=== PATIENT | female | born 2000 | race African-American/Black ===

== ENCOUNTER 2019-03-15 15:31 | Day surgery (SDC) | payer OTHER ==
[2019-03-15 15:57] VITALS: BMI 30.9
[2019-03-15] MEDS ORDERED: Ondansetron ODT 8 MG TAB SL SCH (16:45)
[2019-03-15] MEDS ORDERED: Morphine 4 MG/ML VIAL IM SCH (16:45)
[2019-03-15 17:04] LABS: Bacteria/HPF 4+ HPF (None Seen); Bilirubin Negative (Negative); Blood, Urine 1+ (Negative); Clarity Clear (Clear); Glucose, Urine (Dipstick) Normal (Negative); Leukocyte 500 Leu/uL (Negative); Nitrite Negative (Negative); Protein, Urine (Dipstick) 10 mg/dL (Neg-Trace); RBC/HPF 0-3 HPF (0-3); Squamous Epithelial 0-3 HPF (0-3); Urobilinogen Normal mg/dL (Less than 2); WBC/HPF 21-50 HPF (0-3)
[2019-03-15] MEDS ORDERED: cefTRIAXone\\ROCEPHIN 1 GM VIAL IM SCH (17:15)
[2019-03-16] MEDS ORDERED: hydrALAZINE 20 MG/ML VIAL SLOW IVP PRN (07:56)
--- NOTE | 2019-03-16 08:40 | PRG ---
DATE OF SERVICE: 03/15/2019 CHIEF COMPLAINT: Abdominal contractions. HISTORY OF PRESENT ILLNESS: The patient is a 19-year-old primip, with intrauterine at 38 weeks and 5 days, presenting to Labor and Delivery with abdominal pains that she has been feeling irregularly, cannot give frequency or intensity. The patient was followed in the clinic. She denies any fever, fall, headache, chest pain, shortness of breath, nausea, vomiting, diarrhea, constipation, hip problems, knee problems, or muscle weakness. She reports some crampiness in her back and her pelvis. She also reports that she has been evaluated for blood pressures in the past. She denies vaginal bleeding or leakage of fluid, urinary urgency or frequency. The patient reports having had sex earlier. PAST MEDICAL HISTORY: Negative. PAST SURGICAL HISTORY: Negative. ALLERGIES: NO KNOWN DRUG ALLERGIES. MEDICATIONS: vitamins. OB LABS: Unavailable at the time of dictation. REVIEW OF SYSTEMS: Per HPI. PHYSICAL EXAMINATION: VITAL SIGNS: Blood pressure 136/92, heart rate of 93, respiratory rate 16, and temperature 98.6. She further in the first hour had a few mild range blood pressures that were discovered to be likely erroneous as the patient was sitting on her arm and stretching it out during the blood pressure administration. Subsequent blood pressures over a 4-hour period were in the normal range; 120s to 130s over 60s to 80s, pulse in the 90s. GENERAL: She appears to be in no acute distress. She is alert, oriented, cooperative, and pleasant to interact with. HEAD: Normocephalic, atraumatic. LUNGS: Clear to auscultation bilaterally. HEART: Has regular rate and rhythm. ABDOMEN: Gravid and soft. EXTREMITIES: Nontender, nonedematous. : Her cervical exam was 1, thick, and high. heart tracing shows the fetus with a baseline in the 130s with moderate long-term variability, positive 15 x 15 accelerations. Tocometer showing irritability, but no regular contraction pattern. LABORATORY DATA: Urine has trace protein, negative ketones, 1+ blood, 500 leukocyte esterase, 21 to 50 white blood cells, and 4+ bacteria. ASSESSMENT AND PLAN: The patient is a 19-year-old female with an intrauterine at 38 weeks and 6 days, present with a urinary tract infection and irritability, but no evidence of labor. Initial blood pressures were elevated, but at rest and proper technique, blood pressure remained normal. The patient has been discharged to home. With urinary tract infection, she was given Rocephin IM here in Labor and Delivery for treatment. She has an appointment early next week. We have encouraged that she keep for blood pressure followup and routine care with clinic. Her fetus is at a category 1 tracing, reactive NST. Job ID: [id number]
[2019-03-16] MEDS ORDERED: FLU VACC QS2019-20(6MOS UP)/PF 60 MCG/0.5 ML SYRINGE IM ONE (16:45)
== END 2019-03-15 22:58 | disposition home or self-care (01) ==
LOC: L&D/OP 15:31
PROVIDERS: ATTEND Family Medicine
DX: O23.43 Unspecified infection of urinary tract in pregnancy, third trimester (principal); Z3A.38 38 weeks gestation of pregnancy
CPT/HCPCS: 81001; J0696; J2270

== ENCOUNTER 2019-03-18 16:26 | Inpatient (IN) | payer OTHER ==
[~2019-03-18 16:26] MED LIST: Bupivacaine 0.25% HCL 30 ML VIAL ONE
[2019-03-18 17:20] VITALS: BMI 30.9
--- NOTE | 2019-03-18 17:36 | PDOC.FPROB ---
FMR OB H&P: HPI - History of Present Illness Chief Complaint: ctx Indentification: 19 y/o @ 39.1 WGA by LMP/32.2 wk sono History of Present Illness: presents with ctx that started at noon. They have been increasing in frequency and severity. She was here for a labor check a few days ago and was 1cm. +FM, denies LOF, vaginal bleeding, vaginal d/c. Primary Care Physician: Dr. Holbrook - [facility] FMR OB H&P: Current - Care : 1 Para: 0 Gestational age: 39w1d Due date: 03/24/19 - OB Labs Blood type: O RH: positive Antibody Screen: negative HIV: negative RPR: negative HepBsAg: negative Rubella: immune Urine drug screen: positive (THC) Gonorrhea: negative Chlamydia: negative 1 hour gtt: 2h GTT normal GBS: unknown FMR OB H&P: History - Past Medical History PMH: None - OB History OB History: - Surgical History Sx History: None - Social History Social History: Denies tobacco, EtOH, or drug use, but did have +TCH on UDS this - Family History Family History: Denies FMR OB H&P: Medications - Current Home Medications: Medication Instructions Recorded Confirmed Type Iron Fum,Ps/Folic Acid/Vitc/B3 1 tab PO DAILY 03/15/19 03/18/19 History [Integra F Capsule] Allergies/Adverse Reactions: Allergies Allergy/AdvReac Type Severity Reaction Status Date / Time No Known Allergies Allergy Verified 03/18/19 17:20 FMR OB H&P: ROS - Review of Systems General: denies: fever/chills, weight/appetite/sleep changes Eyes: denies: vision changes, double vision ENT: denies: nasal congestion, sore throat Cardiovascular: denies: chest pain, edema Respiratory: denies: cough, shortness of breath Gastrointestinal: denies: nausea, vomiting Genitourinary (Female): reports: contractions, vaginal pressure. denies: dysuria, hematuria, vaginal discharge Musculoskeletal: denies: pain, swelling Neurologic: denies: numbness, weakness Integumentary: denies: itching, rash FMR OB H&P: Vital Signs - Maternal Vital signs: Vital Signs - First Documented Temp Pulse Resp BP 98.6 F 86 18 120/86 03/18/19 16:59 03/18/19 16:59 03/18/19 16:59 03/18/19 16:59 - Heart Tones Baseline: 135 Variability: moderate Acceleration: present Deceleration: absent Category: category 1 [place] contractions every: 3 min FMR OB H&P: Physical Exam - Physical Exam General: NAD, awake, alert and oriented HEENT: EOMI, MMM, grossly normal vision, grossly normal hearing Neck: supple, no LAD Heart: RRR, normal S1/S2, no murmurs/rubs/gallops, pulses present, no edema General: no respiratory distress, good air movement Abdomen: soft, gravid, non-tender (palpable ctx) Neurological: no clonus, no focal deficit Skin: good tugor, capillary refill <2 seconds Psychiatric: intact recent and remote memory, good judgement and insight - Pelvic Exam SVE: /+1 Membranes: intact Presentation: cephalic FMR OB H&P: A/P - Problem List (1) Term Current Visit: Yes Status: Acute Code(s): Z34.90 - ENCNTR FOR SUPRVSN OF NORMAL , UNSP, UNSP TRIMESTER Comment: SVE /+1 -LR @ 125 -NPO -Will start pushing soon (2) Anemia affecting Current Visit: Yes Status: Acute Code(s): O99.019 - ANEMIA COMPLICATING , UNSPECIFIED TRIMESTER Comment: Pt on iron -Hgb: 11.6 (3) Late care Current Visit: Yes Status: Acute Code(s): O09.30 - SUPRVSN OF PREG W INSUFFICIENT ANTENAT CARE, UNSP TRIMESTER Comment: Records reviewed. -GBS negative Disposition: Admit to L&D Discussion: Date/Time: 03/18/19 8966 This H&P was discussed with Dr. Sánchez who agrees with the above documentation and plan. Signature: Eneida Cazares MD, PGY-3 Addendum - Attending - Attending Attestation Date/Time: 03/19/19 0032 I personally evaluated the patient and discussed the management with Dr. Cazares on 03/18 I agree with the History, Examination, Assessment and Plan documented above with any addition or exceptions noted below - 19 yo @39.1 weeks presented c/o ctx since noon increasing in intensity. ?LOF around noon. (+)FM. Initial SVE 4/90/+1 Category 1 FHTs [place]-ctx q3-4 min A/P: 1) IUP@39.1 weeks in early labor- will admit to L&D and monitor progress. 2) Pre-eclampsia without severe features- elevated BPs and had urine Pr/Cr at clinic = 0.5. Continue to monitor closely.
[2019-03-18] MEDS ORDERED: Ibuprofen 800 MG TAB PO PRN (17:49)
[2019-03-18] MEDS ORDERED: Lidocaine 1% (PF) 30 ML VIAL SC PRN (17:49)
[2019-03-18] MEDS ORDERED: NS / Oxytocin 40 units/1000ml 1,000 ML IV PRN (17:49)
[2019-03-18] MEDS ORDERED: Promethazine HCl 25 MG/ML VIAL IM PRN (17:49)
[2019-03-18] MEDS ORDERED: hydrALAZINE 20 MG/ML VIAL SLOW IVP PRN (17:49)
[2019-03-18] MEDS ORDERED: Ondansetron PF 4 MG/2 ML Vial IVP PRN (17:49)
[2019-03-18] MEDS ORDERED: Lactated Ringer's 1,000 ML IV SCH (18:00)
[2019-03-18] MEDS ORDERED: Butorphanol Tartrate 1 MG/ML VIAL SLOW IVP PRN (18:21)
[2019-03-18 19:09] LABS: Hemoglobin 11.6 g/dL (12.0-16.0); Mean Corpuscular HGB CONC 32.7 g/dL (32.0-36.0); Mean Corpuscular Hemoglobin 28.7 pg (25.0-35.0); Mean Corpuscular Volume 87.9 fL (78.0-98.0); Mean Platelet Volume 8.1 fL (7.4-10.4); Platelet Count 271 thou/uL (130-400); Red Blood Cell (RBC) Count 4.05 mill/uL (4.00-5.20); White Blood Cell (WBC) Count 11.1 thou/uL (4.8-10.8)
[2019-03-18] MEDS ORDERED: Fentanyl 4 mcg/Bup 0.1% Cadd 100 ML ONE (19:31)
[2019-03-18 19:33] LABS: ALT (SGPT) 9 U/L (8-55); AST (SGOT) 13 U/L (5-34); Albumin 3.2 g/dL (3.5-5.0); Alkaline Phosphatase 252 U/L (40-100); Anion Gap 14 mmol/L (10-20); BUN (Urea Nitrogen) Less than 4 mg/dL (7.0-18.7); Bilirubin, Total 0.3 mg/dL (0.2-1.2); Calc. Creatinine Clearance 165 mL/min (70-130); Calcium 8.6 mg/dL (7.8-10.44); Carbon Dioxide 25 mmol/L (22-29); Chloride 102 mmol/L (98-107); Estimated GFR-MDRD Greater than 90; Globulin 3.7 g/dL (2.4-3.5); Glucose 82 mg/dL (70-105); Potassium 3.1 mmol/L (3.5-5.1); Protein, Total 6.9 g/dL (6.0-8.3); Sodium 138 mmol/L (136-145)
[2019-03-18 19:36] LABS: Amphetamine Not Detected (NotDetected); Barbiturates Screen Not Detected (NotDetected); Benzodiazepine Screen Not Detected (NotDetected); Cocaine Metabolite Screen Not Detected (NotDetected); Medtox Control Line Valid? VALID (VALID); Medtox Reader # READER 4; Methadone Not Detected (NotDetected); Methamphetamine Not Detected (NotDetected); Opiate Screen Not Detected (NotDetected); Oxycodone Screen Not Detected (NotDetected); Phencyclidine (PCP) Not Detected (NotDetected); THC/Cannabinoid Screen Detected (NotDetected); Tricyclic Screen Not Detected (NotDetected)
[2019-03-18 19:50] LABS: Syphilis Antibody Nonreactive (Nonreactive); Syphilis Antibody Index 0.08 S/CO (<1.00 Non-Reactive)
[2019-03-18 19:51] LABS: HBSAg Index 0.86 S/CO (0-0.99); Hep B Surf Ag Non-Reactive S/CO (NonReactive)
--- NOTE | 2019-03-18 22:11 | PDOC.LDPN ---
Labor & Delivery Progress Note - Subjective Subjective: comfortable, vaginal pressure - Objective Vital signs reviewed and normal: yes Abnormal vital signs: elevated bp with 2 severe range during epidural back to back General: NAD, resting Uterine fundus: non tender SVE: posterior Dilation: 6 Effacement: 100% Station: 1+ FHT: category 1 [place] contractions every: 1-2 minutes - Assessment (1) Anemia affecting Code(s): O99.019 - ANEMIA COMPLICATING , UNSPECIFIED TRIMESTER Current Visit: Yes Status: Acute Comment: Pt on iron -Hgb: 11.6 (2) Late care Code(s): O09.30 - SUPRVSN OF PREG W INSUFFICIENT ANTENAT CARE, UNSP TRIMESTER Current Visit: Yes Status: Acute Comment: Records reviewed. -GBS status unknown but have called [facility] and they will fax results. Penicillin pending results (3) Term Code(s): Z34.90 - ENCNTR FOR SUPRVSN OF NORMAL , UNSP, UNSP TRIMESTER Current Visit: Yes Status: Acute Comment: SVE 6/+1 -LR @ 125 -NPO -SVE q2h Plan: continue plan of care
--- NOTE | 2019-03-18 23:12 | PDOC.LDPN ---
Labor & Delivery Progress Note - Subjective Subjective: vaginal pressure - Objective Vital signs reviewed and normal: yes General: breathing through contractions Uterine fundus: palpable contractions Dilation: 10 Effacement: 100% Station: -1 FHT: category 1 [place] contractions every: 1 min - Assessment (1) Anemia affecting Code(s): O99.019 - ANEMIA COMPLICATING , UNSPECIFIED TRIMESTER Current Visit: Yes Status: Acute Comment: Pt on iron -Hgb: 11.6 (2) Late care Code(s): O09.30 - SUPRVSN OF PREG W INSUFFICIENT ANTENAT CARE, UNSP TRIMESTER Current Visit: Yes Status: Acute Comment: Records reviewed. -GBS negative (3) Term Code(s): Z34.90 - ENCNTR FOR SUPRVSN OF NORMAL , UNSP, UNSP TRIMESTER Current Visit: Yes Status: Acute Comment: LISE /+1 -LR @ 125 -NPO -Will start pushing soon Plan: continue plan of care
--- NOTE | 2019-03-19 00:17 | PDOC.OPDEL ---
OB Operative/Delivery Note Delivery Dr/Surgeon: Dr. Holbrook, Dr. Alba Johnson, Dr. Sánchez Pre-Delivery Diagnosis: active labor, other (Pre-Eclampsia) Procedure/Post Delivery Dx: spontaneous vaginal delivery Weeks gestation: 39 Anesthesia: epidural - Findings A Sex: male - 1 min: 9 - 5 min: 9 - Additional Findings/Plan Placenta delivered: spontaneous (Richardson) Repaired Obstetrical Laceration: none Estimated blood loss: 50 mL Compilations/Other Findings: Delivering Physician: Dr. Alba Johnson, Dr. Holbrook Attending: Dr. Sánchez Procedure: Spontaneous Vaginal Delivery Anesthesia: Epidural EBL: 50 ml Pre-op Diagnosis: 1. Term intrauterine in labor 2. Hx of THC use 3. Hx of elevated BP without diagnosis of HTN Post-op Diagnosis: 1. Term intrauterine , delivered 2. Hx of THC use 3. Hx of elevated BP without diagnosis of HTN Indications: A 19 y/o female presents in for contractions. Delivery Note: This is 19 yo F @ 39.2 wks who delivered a viable M at 03/19 @ 0002. Following an uneventful antepartum course, a vigorous M was delivered over an intact perineum in the occipitoanterior position. Anterior Shoulder and then remainder of the body delivered. No nuchal cord. The head was held down and mouth and nares were bulb suctioned. Cord clamped after delayed cord clamping and cut and cord blood collected. Placenta delivered intact in the [place] presentation with a 3 vessel cord noted. Fundal massage was performed and the fundus was firm. The cervix and vagina were inspected and found to be free of lacerations. Infant went to nursery in good condition for routine care. Apgars were 9/9 at 1 & 5 minutes, respectively. Patient tolerated delivery well and went to after routine recovery/ care. Post delivery plan: routine recovery Addendum - Attending - Attending Attestation Date/Time: 03/19/19 0044 I was present, assisted and supervised the of a viable male infant to this 19 yo @39.2 weeks. Apgars 9/9. No nuchal cord. Shoulders and body delivered easily. Placenta delivered spontaneously and intact, 3V cord. No epi or laceration. QBL=50 mL. Residents: Alba Johnson/Sheron
[2019-03-19] MEDS ORDERED: Benzocaine-Menthol 82.5 ML CAN TOP PRN (01:48)
[2019-03-19] MEDS ORDERED: Ondansetron PF 4 MG/2 ML Vial IVP PRN (01:48)
[2019-03-19] MEDS ORDERED: Preparation H Ointment 28 GM TUBE PR PRN (01:48)
[2019-03-19] MEDS ORDERED: Milk Of Magnesia 30 ML UDCUP PO PRN (01:48)
[2019-03-19] MEDS ORDERED: Bisacodyl 10 MG SUPP PR PRN (01:48)
[2019-03-19] MEDS ORDERED: diphenhydrAMINE 25 MG CAP PO PRN (01:48)
[2019-03-19] MEDS ORDERED: Lanolin Ointment 7 GM TUBE TOP PRN (01:48)
[2019-03-19] MEDS ORDERED: NS / Oxytocin 40 units/1000ml 1,000 ML IV SCH (01:48)
[2019-03-19] MEDS ORDERED: hydrALAZINE 20 MG/ML VIAL SLOW IVP PRN (01:48)
[2019-03-19] MEDS: Ibuprofen 800 MG TAB PO SCH ×3 (04:44→21:22)
--- NOTE | 2019-03-19 07:35 | PDOC.OBPPN ---
FMR OB PN: Subj - Interval History Hospital Day: 2 Day: 1 Chief Complaint: Indentification: > Interval History: NA FMR OB PN: Obj - Maternal Vital signs: BP: [135/73] HR: [85] RR: [] Tmax: [98.3] Pox: [99]% on [Room] Wt: [] - Urine output I&O: 03/18/19 03/19/19 03/20/19 06:59 06:59 06:59 Output Total 115 Balance -115 - Lochia Lochia: Scant vaginal bleeding - unremarkable. - Pain Management Pain scale: 0 Intervention: epidural FMR OB PN: Exam - Physical Exam General: NAD HEENT: normocephalic and atraumatic, PERRLA, MMM, conjunctiva clear, no scleral icterus, grossly normal vision, grossly normal hearing, normal nasal mucosa, oropharynx clear, good dention Neck: supple, FROM Chest: non-tender to palpation, no lesions Breast: symmetric, no nipple discharge Heart: RRR, normal S1/S2, no murmurs/rubs/gallops, pulses present, no edema General: CTAB, no respiratory distress, good air movement, no rales/rhonchi, no wheezing, no retractions Musculoskeletal: pulses present, FROM in all four extremities, no misalignment/ asymmetry, no atrophy Neurological: sensation to pain,touch and proprioception grossly normal Skin: no rash, no jaundice Lymphatic: no unusual bruising or bleeding, no purpura, no petechia Psychiatric: intact recent and remote memory, normal mood and affect FMR OB PN: Data - Labs Lab results: Laboratory Results - last 24 hr 03/18/19 03/18/19 03/18/19 19:01 19:01 19:01 WBC RBC Hgb Hct MCV MCH MCHC RDW Plt Count MPV Sodium Potassium Chloride Carbon Dioxide Anion Gap BUN Creatinine Estimated GFR (MDRD) Glucose Calcium Total Bilirubin AST ALT Alkaline Phosphatase Serum Total Protein Albumin Globulin Albumin/Globulin Ratio Urine Opiates Screen Ur Oxycodone Screen Urine Methadone Screen Ur Propoxyphene Screen Ur Barbiturates Screen Ur Tricyclics Screen Ur Phencyclidine Scrn Ur Amphetamines Screen U Methamphetamines Scrn U Benzodiazepines Scrn U Cocaine Metab Screen U Cannabinoids Screen Drug Screen Comment Syphilis IgG/IgM Ab Nonreactive Hep Bs Antigen Non-Reactive Blood Type O POSITIVE Antibody Screen NEGATIVE 03/18/19 03/18/19 03/18/19 19:01 19:01 19:17 WBC 11.1 H RBC 4.05 Hgb 11.6 L Hct 35.6 L MCV 87.9 MCH 28.7 MCHC 32.7 RDW 15.0 H Plt Count 271 MPV 8.1 Sodium 138 Potassium 3.1 L Chloride 102 Carbon Dioxide 25 Anion Gap 14 BUN Less than 4 L Creatinine 0.68 Estimated GFR (MDRD) Greater than 90 Glucose 82 Calcium 8.6 Total Bilirubin 0.3 AST 13 ALT 9 Alkaline Phosphatase 252 H Serum Total Protein 6.9 Albumin 3.2 L Globulin 3.7 H Albumin/Globulin Ratio 0.9 L Urine Opiates Screen Not Detected Ur Oxycodone Screen Not Detected Urine Methadone Screen Not Detected Ur Propoxyphene Screen Not Detected Ur Barbiturates Screen Not Detected Ur Tricyclics Screen Not Detected Ur Phencyclidine Scrn Not Detected Ur Amphetamines Screen Not Detected U Methamphetamines Scrn Not Detected U Benzodiazepines Scrn Not Detected U Cocaine Metab Screen Not Detected U Cannabinoids Screen Detected H Drug Screen Comment Syphilis IgG/IgM Ab Hep Bs Antigen Blood Type Antibody Screen 03/18/19 20:02 WBC RBC Hgb Hct MCV MCH MCHC RDW Plt Count MPV Sodium Potassium Chloride Carbon Dioxide Anion Gap BUN Creatinine Estimated GFR (MDRD) Glucose Calcium Total Bilirubin AST ALT Alkaline Phosphatase Serum Total Protein Albumin Globulin Albumin/Globulin Ratio Urine Opiates Screen Ur Oxycodone Screen Urine Methadone Screen Ur Propoxyphene Screen Ur Barbiturates Screen Ur Tricyclics Screen Ur Phencyclidine Scrn Ur Amphetamines Screen U Methamphetamines Scrn U Benzodiazepines Scrn U Cocaine Metab Screen U Cannabinoids Screen Drug Screen Comment Syphilis IgG/IgM Ab Hep Bs Antigen Blood Type O POSITIVE Antibody Screen FMR OB PN: A/P - Problem List (1) care following vaginal delivery Current Visit: Yes Status: Acute Code(s): Z39.2 - ENCOUNTER FOR ROUTINE FOLLOW-UP (2) Substance abuse affecting , antepartum Current Visit: Yes Status: Acute Code(s): O99.320 - DRUG USE COMPLICATING , UNSPECIFIED TRIMESTER (3) Term Current Visit: Yes Status: Acute Code(s): Z34.90 - ENCNTR FOR SUPRVSN OF NORMAL , UNSP, UNSP TRIMESTER Comment: SVE /+1 -LR @ 125 -NPO -Will start pushing soon Disposition: 19 y/o female admitted initially for contractions, subsequently delivered at 0002 on 03/19/19. 1. Term , resolved -Late to care -Presented with contractions at 39.1W -SVE: /+1, progressed to 01/24/+1 within 5 hours -Unremarkable delivery - TAGAM with APGARS of 9/9 -QBL: 65 ml 2. Care following Vaginal Delivery -Minimal bleeding -BP: 135/73 - continue to monitor closely -Pain adequately controlled -No difficulty voiding - unable to pass stool yet -Intends to formula feed -Discuss desire for circumcision at subsequent evaluation 3. Substance Abuse Affecting , Antepartum -Patient's UDS was positive for THC on multiple occasions - UDS: Pending -Patient's room smelled strongly of MJ during initial evaluation -Consider Case Management / CPS consult following discussion with Attending Physician 4. Hypokalemia -K: 3.1 -K-Dur 40 mg PO BID -Continue to monitor clinically Dispo: Patient recovering well on Floor. Continue to monitor vitals and laboratory values. Discuss desire for circumcision at subsequent evaluation. Await subsequent UDS - consider Case Management / CPS consult. Discussion: Date/Time: 03/19/19 6184 This H&P was discussed with [] and [] who agree with the above documentation and plan. Addendum - Attending - Attending Attestation Date/Time: 03/19/19 1200 I personally evaluated the patient and discussed the management with Dr. Garcia and team. I agree with the History, Examination, Assessment and Plan documented above with any addition or exceptions noted below. Patient with no complaints of pain, headache, RUQ/BRYAN pain, scotoma. Feels good overall. Anticipate 48-72h pp with circ on day of d/c for per parental request.
[2019-03-19] MEDS ORDERED: Adacel (T-DAP) 0.5 ML SYRINGE IM ONE (09:00)
[2019-03-19] MEDS: Ferrous Sulfate 325 MG TAB PO SCH ×2 (09:37→17:40)
[2019-03-19] MEDS: Potassium Chloride 20 MEQ TAB PO SCH ×2 (09:37→17:40)
[2019-03-19] MEDS: Docusate Calcium (SURFAK) 240 MG CAP PO SCH ×2 (09:37→21:22)
[2019-03-19] MEDS: Prenatal Vitamin 1 TAB PO SCH (09:37)
[2019-03-19] MEDS ORDERED: Sodium Chloride 0.9% 10 ML ONE (10:58)
--- NOTE | 2019-03-20 01:40 | PDOC.PP ---
Post Progress Note Subjective: Ms. Redmond is doing well, ambulating down the hallway. She reports minimal lochia, denies pain. She has no concerns. Undecided on contraception. PO intake tolerated: yes Flatus: yes Ambulation: yes Vital Signs (12 hours) Temp Pulse Resp BP Pulse Ox 03/19/19 23:15 98.2 F 85 16 139/72 03/19/19 20:11 98.2 F 87 16 144/76 H 100 03/19/19 17:27 97.8 F 65 16 136/78 98 Weight Weight 79.379 kg - Physical Examination General: NAD Cardiovascular: RRR Respiratory: clear to auscultation bilaterally, non-labored breathing Abdominal: + bowel sounds, no distention, appropriately TTP Neurological: no gross focal deficits Psychiatric: A&Ox3, normal affect Result Diagrams: 03/18/19 19:01 03/18/19 19:01 Additional Labs: Post Labs Blood Type O POSITIVE 03/18/19 20:02 Hep Bs Antigen Non-Reactive S/CO (NonReactive) 03/18/19 19:01 (1) care following vaginal delivery Code(s): Z39.2 - ENCOUNTER FOR ROUTINE FOLLOW-UP Status: Acute (2) Anemia affecting Code(s): O99.019 - ANEMIA COMPLICATING , UNSPECIFIED TRIMESTER Status : Acute Comment: Pt on iron -Hgb: 11.6 (3) Late care Code(s): O09.30 - SUPRVSN OF PREG W INSUFFICIENT ANTENAT CARE, UNSP TRIMESTER Status: Acute Comment: Records reviewed. -GBS negative (4) Substance abuse affecting , antepartum Code(s): O99.320 - DRUG USE COMPLICATING , UNSPECIFIED TRIMESTER Status: Acute (5) Preeclampsia Code(s): O14.90 - UNSPECIFIED PRE-ECLAMPSIA, UNSPECIFIED TRIMESTER Status: Acute - Assessment/Plan 19 y/o female admitted initially for contractions, subsequently delivered at 0002 on 03/19/19. Care following Vaginal Delivery -Pain adequately controlled -Bottle feeding -Undecided on contraception Pre-E without severe features -urine Pr/Cr at clinic of 0.5 - patient asymptomatic - has had 2 isolated BPs >140 systolic, continue to monitor BP Substance Abuse Affecting , Antepartum -Patient's UDS was positive for THC on multiple occasions, UDS on admission negative. - UDS negative, pending MDS Anemia - Hgb 11.7 prior to delivery with minimal blood loss Dispo: Patient recovering well on Floor. Plan for continued observation and discharge tomorrow. Addendum - Attending - Attending Attestation Date/Time: 03/20/19 2322 I personally evaluated the patient and discussed the management with the team. I agree with the History, Examination, Assessment and Plan documented above with any addition or exceptions noted below.
[2019-03-20] MEDS: Ferrous Sulfate 325 MG TAB PO SCH ×2 (12:47→17:33)
[2019-03-20] MEDS: Docusate Calcium (SURFAK) 240 MG CAP PO SCH ×2 (12:47→21:39)
[2019-03-20] MEDS: Ibuprofen 800 MG TAB PO SCH ×3 (12:47→21:39)
[2019-03-20] MEDS: Prenatal Vitamin 1 TAB PO SCH (12:48)
[2019-03-20] MEDS: Amoxicillin/Potassium Clav 500 MG TAB PO SCH (21:39)
--- NOTE | 2019-03-21 01:54 | PDOC.PP ---
Post Progress Note Subjective: Patient feeling well. She has no concerns or complaints. She feels ready to go home. PO intake tolerated: yes Flatus: yes Ambulation: yes Vital Signs (12 hours) Temp Pulse Resp BP Pulse Ox 03/21/19 00:20 98.2 F 87 18 120/75 03/20/19 20:00 98.5 F 83 20 133/72 99 Weight Weight 79.379 kg - Physical Examination General: NAD Cardiovascular: RRR Respiratory: clear to auscultation bilaterally, non-labored breathing Abdominal: + bowel sounds, no distention (no TTP) Neurological: no gross focal deficits Psychiatric: A&Ox3, normal affect Result Diagrams: 03/18/19 19:01 03/18/19 19:01 Additional Labs: Post Labs Blood Type O POSITIVE 03/18/19 20:02 Hep Bs Antigen Non-Reactive S/CO (NonReactive) 03/18/19 19:01 (1) care following vaginal delivery Code(s): Z39.2 - ENCOUNTER FOR ROUTINE FOLLOW-UP Status: Acute (2) Anemia affecting Code(s): O99.019 - ANEMIA COMPLICATING , UNSPECIFIED TRIMESTER Status : Acute Comment: Pt on iron -Hgb: 11.6 (3) Late care Code(s): O09.30 - SUPRVSN OF PREG W INSUFFICIENT ANTENAT CARE, UNSP TRIMESTER Status: Acute Comment: Records reviewed. -GBS negative (4) Substance abuse affecting , antepartum Code(s): O99.320 - DRUG USE COMPLICATING , UNSPECIFIED TRIMESTER Status: Acute (5) Preeclampsia Code(s): O14.90 - UNSPECIFIED PRE-ECLAMPSIA, UNSPECIFIED TRIMESTER Status: Acute - Assessment/Plan 19 y/o female admitted initially for contractions, subsequently delivered at 0002 on 03/19/19. Care following Vaginal Delivery -Denies pain -Bottle feeding -Undecided on contraception Pre-E without severe features - urine Pr/Cr at clinic of 0.5 - patient asymptomatic - has had 2 isolated BPs >140 systolic, otherwise wnl Substance Abuse Affecting , Antepartum -Patient's UDS was positive for THC on multiple occasions, UDS on admission negative. - UDS negative, pending MDS Anemia - Hgb 11.7 prior to delivery with minimal blood loss Dispo: Patient recovering well on Floor. Plan for discharge today. Addendum - Attending - Attending Attestation Date/Time: 03/21/19 8245 I personally evaluated the patient and discussed the management with Dr. Holbrook and team. I agree with the History, Examination, Assessment and Plan documented above with any addition or exceptions noted below.
[2019-03-21 04:21] VITALS: TEMP 98.3
[2019-03-21] MEDS: Ibuprofen 800 MG TAB PO SCH (05:36)
[2019-03-21 08:34] VITALS: BP 117/63
[2019-03-21] MEDS: Prenatal Vitamin 1 TAB PO SCH (09:51)
[2019-03-21] MEDS: Docusate Calcium (SURFAK) 240 MG CAP PO SCH (09:51)
[2019-03-21] MEDS: Amoxicillin/Potassium Clav 500 MG TAB PO SCH (09:52)
[2019-03-21] MEDS: Ferrous Sulfate 325 MG TAB PO SCH (09:52)
== END 2019-03-21 12:27 | disposition home or self-care (01) | DRG 806 ==
LOC: L&D/OP 16:26 → L&D 22:03 → 3SW 03-19 02:51
PROVIDERS: ADMIT Emergency Medicine; ATTEND Emergency Medicine
PROC: 10E0XZZ Delivery of Products of Conception, External Approach (ICD-10-PCS; principal; 2019-03-19)
DX: O99.02 Anemia complicating childbirth (principal); O99.324 Drug use complicating childbirth; Z37.0 Single live birth; O72.1 Other immediate postpartum hemorrhage; O14.04 Mild to moderate pre-eclampsia, complicating childbirth; D64.9 Anemia, unspecified; Z3A.39 39 weeks gestation of pregnancy; F12.10 Cannabis abuse, uncomplicated; E87.6 Hypokalemia; O99.284 Endocrine, nutritional and metabolic diseases complicating childbirth
CPT/HCPCS: 36415; 51702; 80053; 80306; 85027; 86780; 86850; 86900; 86901; 87340; 88307; 99285; J0595; S0020

== ENCOUNTER 2020-02-16 06:33 | Inpatient (IN) | payer OTHER ==
[2020-02-16 07:09] VITALS: BMI 29.8
[2020-02-16] MEDS ORDERED: Lidocaine 1% (PF) 30 ML VIAL ONE (07:34)
[2020-02-16] MEDS ORDERED: NS / Oxytocin 40 units/1000ml 1,000 ML ONE (07:34)
[2020-02-16] MEDS ORDERED: Acetaminophen 500 MG TAB PO PRN ×2 (07:37→14:55)
[2020-02-16] MEDS ORDERED: Butorphanol Tartrate 1 MG/ML VIAL SLOW IVP PRN (07:37)
[2020-02-16] MEDS ORDERED: NS / Oxytocin 40 units/1000ml 1,000 ML IV PRN (07:37)
[2020-02-16] MEDS ORDERED: Ibuprofen 800 MG TAB PO PRN (07:37)
[2020-02-16] MEDS ORDERED: hydrALAZINE 20 MG/ML VIAL SLOW IVP PRN ×2 (07:37→11:47)
[2020-02-16] MEDS ORDERED: Promethazine HCl 25 MG/ML VIAL IM PRN ×2 (07:37→08:57)
[2020-02-16] MEDS ORDERED: Misoprostol 200 MCG TAB PR PRN (07:37)
[2020-02-16] MEDS ORDERED: Ondansetron PF 4 MG/2 ML Vial IVP PRN ×2 (07:37→08:57)
[2020-02-16] MEDS ORDERED: Lidocaine 1% (PF) 30 ML VIAL SC PRN (07:37)
[2020-02-16] MEDS ORDERED: Penicillin G Potassium 5 MILL.UNITS VIAL ONE (07:42)
[2020-02-16] MEDS ORDERED: NS w/ Oxytocin 10 units 500 ML IV SCH (07:45)
[2020-02-16] MEDS: Lactated Ringer's 1,000 ML IV SCH ×4 (07:45→23:56)
[2020-02-16] MEDS ORDERED: Penicillin G Potassium 5 MILL.UNITS in Sodium Chloride 0.9% 100 ML IVPB SCH (07:45)
[2020-02-16] MEDS ORDERED: Fentanyl 4 mcg/Bup 0.1% Cadd 100 ML ONE (08:04)
[2020-02-16 08:08] LABS: Hemoglobin 11.9 g/dL (12.0-16.0); Mean Corpuscular HGB CONC 32.6 g/dL (32.0-36.0); Mean Corpuscular Hemoglobin 28.8 pg (27.0-31.0); Mean Corpuscular Volume 88.3 fL (78.0-98.0); Mean Platelet Volume 8.6 fL (7.4-10.4); Platelet Count 306 thou/uL (130-400); RBC Distribution Width 14.2 % (11.5-14.5); Red Blood Cell (RBC) Count 4.12 mill/uL (4.20-5.40)
--- NOTE | 2020-02-16 08:18 | PDOC.FPROB ---
FMR OB H&P: HPI - History of Present Illness Chief Complaint: contractions and pressure Indentification: @ 39 WGA by 33.2 wk sono History of Present Illness: 20YO @ 39 WGA by a 33.2 week sono presenting for contractions and increased vaginal pressure. Reports her contractions began around 0530 this AM and persisted and became more painful and closer together. States she also started to experience increased vaginal pressure so decided to come to L&D for evaluation. Denies any LOF, vaginal bleeding, or abnormal discharge. +FM. No reported HAs, vision changes, chest pain, or edema. Primary Care Physician: ZAMZAM Yuen FMR OB H&P: Current - Care : 2 Para: 1001 Gestational age: 39 WGA Due date: 02/23/2020 Dating Criteria: 33.2 week sono Course/Complications: E coli UTI, BV in 3T, anemia & Hx pre-e in prior - OB Labs Blood type: O RH: positive Antibody Screen: negative HIV: negative RPR: negative HepBsAg: negative Rubella: immune Gonorrhea: negative Chlamydia: negative GBS: positive - First Trimester Ultrasound First trimester: not done - Anatomy Survey Anatomy survey: Normal anatomy but unable to see full cardiac views. MASOUD 02/23/2020. Male sIUP - Additional Ultrasound Additional: f/u growth sono @ ~36 WGA, ~28% by [place] FMR OB H&P: History - Past Medical History PMH: none - OB History OB History: Term @ ~39.2 WGA complicated by pre-e without severe features - PROJECT OFFICER History PROJECT OFFICER History: none, needs pap PP as now 20YO - Surgical History Sx History: None - Social History Social History: No TAD. - Family History Family History: non-contributory FMR OB H&P: Medications - Current Home Medications: Medication Instructions Recorded Confirmed Type Iron Fum,Ps/Folic Acid/Vitc/B3 1 tab PO DAILY 03/15/19 02/16/20 History [Integra F Capsule] Vitamin 1 tab PO DAILY tab 03/19/19 02/16/20 Rx Amoxicillin/Potassium Clav 500 mg PO Q12HR #7 tab 03/21/19 02/16/20 Rx [Augmentin] Allergies/Adverse Reactions: Allergies Allergy/AdvReac Type Severity Reaction Status Date / Time No Known Allergies Allergy Verified 03/18/19 17:20 FMR OB H&P: ROS - Review of Systems General: denies: fever/chills, weight/appetite/sleep changes Eyes: denies: vision changes, scotomas ENT: denies: nasal congestion, sore throat Cardiovascular: denies: chest pain, edema Respiratory: denies: cough, shortness of breath Gastrointestinal: denies: nausea, vomiting, diarrhea Genitourinary (Female): reports: contractions, vaginal pressure. denies: dysuria, hematuria, vaginal discharge, vaginal bleeding Musculoskeletal: denies: arthritis/arthralgias Neurologic: denies: syncope, headache Integumentary: denies: itching, rash Psychological: denies: depression, anxiety FMR OB H&P: Vital Signs - Maternal Vital signs: Vital Signs - First Documented Temp Pulse Resp BP 98.8 F 96 18 136/86 02/16/20 07:07 02/16/20 07:07 02/16/20 07:07 02/16/20 07:07 - Heart Tones Baseline: 130 Variability: moderate Acceleration: present Deceleration: absent Category: category 1 [place] contractions every: 2 minutes FMR OB H&P: Physical Exam - Physical Exam General: awake, alert and oriented, other (mild distress 2/2 contractions) HEENT: normocephalic and atraumatic, grossly normal vision, grossly normal hearing Neck: supple, FROM Heart: RRR, normal S1/S2 General: CTAB, no respiratory distress Abdomen: gravid Musculoskeletal: FROM in all four extremities Neurological: cranial nerves II through XII intact, sensation to pain,touch and proprioception grossly normal, no focal deficit Psychiatric: intact recent and remote memory, good judgement and insight, normal mood and affect - Pelvic Exam SVE: Membranes: intact Presentation: cephalic FMR OB H&P: Results - Labs Lab results: Laboratory Results - last 24 hr 02/16/20 07:45 RBC 4.12 L Hgb 11.9 L Hct 36.3 MCV 88.3 MCH 28.8 MCHC 32.6 RDW 14.2 Plt Count 306 MPV 8.6 FMR OB H&P: A/P - Problem List (1) Group B streptococcal carriage complicating Current Visit: Yes Status: Acute Code(s): O99.820 - STREPTOCOCCUS B CARRIER STATE COMPLICATING (2) Anemia affecting Current Visit: No Status: Acute Code(s): O99.019 - ANEMIA COMPLICATING , UNSPECIFIED TRIMESTER (3) Late care Current Visit: No Status: Acute Code(s): O09.30 - SUPRVSN OF PREG W INSUFFIC IENT ANTENAT CARE, UNSP TRIMESTER (4) Term Current Visit: No Status: Acute Code(s): Z34.90 - ENCNTR FOR SUPRVSN OF NORMAL , UNSP, UNSP TRIMESTER Disposition: 20YO @ 39 WGA by 33.2 week sono presenting for contractions & noted to be in active labor. term sIUP in active labor: - Robert q2 minutes w/ SVE of 8/+1 & a bulging bag on arrival - Cephalic presentation confirmed via formal sono as bedside not working - Desires epidural, anesthesia notified - Will admit for routine labor management with plans to proceed with a Late to PNC: - Only 2 office visits this but IOB labs & GTT WNLs. s/p flu & Tdap. GBS +. GBS+: - Will start PEN G on admission. Anemia in : - On PO iron. Admission H/H pending. Hx E Coli UTI in 3T: - Has started but no completed abx course. Needs DAHLIA PP. Hx BV in 3T: - Has started but no completed abx course. Needs DAHLIA PP. Hx pre-e in prior : - Aware, NL BPs so far since arrival w/ exception of 1 SBP in the 140s while getting epidural. Will continue to monitor BPs closely. Hx marijuana use in early : - Negative UDS in office. Will obtain another on admission as well & consider a CM consult pending the results. Discussion: Date/Time: 02/16/20 1478 This H&P was discussed with Dr. Wilkerson who agrees with the above documentation and plan. Addendum - Attending - Attending Attestation Date/Time: 02/16/20 2704 I personally evaluated the patient and discussed the management with the team. I agree with the History, Examination, Assessment and Plan documented above with any addition or exceptions noted below. PCN for gbs ppx. Expectant management as long as FHTs are category 1.
[2020-02-16 08:37] LABS: White Blood Cell (WBC) Count 23.3 thou/uL (4.8-10.8)
[2020-02-16 08:51] LABS: HBSAg Index 0.14 S/CO (0-0.99); Hep B Surf Ag Non-Reactive S/CO (NonReactive); Syphilis Antibody Nonreactive (Nonreactive); Syphilis Antibody Index 0.15 S/CO (<1.00 Non-Reactive)
[2020-02-16] MEDS ORDERED: diphenhydrAMINE 50 MG/ML VIAL IVP PRN (08:57)
[2020-02-16] MEDS ORDERED: Lactated Ringer's 500 ML IV PRN (08:57)
[2020-02-16] MEDS ORDERED: Naloxone HCl 0.4 mg/ml Vial IVP PRN ×2 (08:57)
[2020-02-16] MEDS ORDERED: Acetaminophen 325 MG TAB PO PRN (08:57)
[2020-02-16] MEDS ORDERED: Fentanyl 4 mcg/Bupivacaine 0.1% Cassette 100 ML EPIDURAL SCH (09:00)
[2020-02-16] MEDS ORDERED: Communication Order-Pharmacy FS SCH (09:00)
[2020-02-16] MEDS ORDERED: ePHEDrine 50 MG/ML VIAL SLOW IVP PRN (09:11)
--- NOTE | 2020-02-16 10:25 | PDOC.OBLPN ---
FMR OB Labor PN: Subj - Interval History Hospital Day: 1 Chief Complaint: none Indentification: 20yo @ 39wga Interval History: S/p epidural FMR OB Labor PN: Obj - Maternal Vital signs: BP: [137/68] HR: [86] FMR OB Labor PN: Exam - Physical Exam General: NAD, awake, alert and oriented HEENT: normocephalic and atraumatic, EOMI, MMM Neck: FROM, trachea midline Abdomen: soft, gravid Musculoskeletal: FROM in all four extremities Neurological: no clonus, no tremor - Pelvic Exam Vulva: normal hair distribution Cervix: no blood SVE: 9/100/0, bulging bag FMR OB Labor PN: Data - Labs Lab results: Laboratory Results - last 24 hr 02/16/20 02/16/20 02/16/20 07:45 07:45 07:45 WBC RBC Hgb Hct MCV MCH MCHC RDW Plt Count MPV Syphilis IgG/IgM Ab Nonreactive Hep Bs Antigen Non-Reactive Blood Type O POSITIVE Antibody Screen NEGATIVE 02/16/20 07:45 WBC 23.3 H RBC 4.12 L Hgb 11.9 L Hct 36.3 MCV 88.3 MCH 28.8 MCHC 32.6 RDW 14.2 Plt Count 306 MPV 8.6 Syphilis IgG/IgM Ab Hep Bs Antigen Blood Type Antibody Screen FMR OB Labor PN: A/P Disposition: 20YO @ 39 WGA by 33.2 week sono presenting for contractions & noted to be in active labor. #term sIUP in active labor: - Robert q2 minutes w/ SVE of 9/100/0 @ 1000, bulging bag - Cephalic presentation confirmed via formal sono as bedside not working - Epidural has been placed, patient comfortable - Will recheck @ 1200 s/p 2nd dose of PCN or sooner prn #Late to PNC: - Has had 3 office visits this , IOB labs & GTT WNLs. s/p flu & Tdap. GBS +. #GBS+: - S/p 1 dose PEN G on admission. - 2nd dose to be given at 1150 #Anemia in : - On PO iron. Admission H/H 11.9/36.3 #Hx E Coli UTI in 3T: - Has started but no completed abx course. Needs DAHLIA PP. #Hx BV in 3T: - Has started but no completed abx course. Needs DAHLIA PP. #Hx pre-e in prior : - Aware, Will continue to monitor BPs closely. #Hx marijuana use in early : - Negative UDS in office. Repeat pending; consider a CM consult pending the results. Discussion: Date/Time: 02/16/20 1029 This H&P was discussed with [Rock] who agree with the above documentation and plan. Signature: Lex Yuen MD PGY-2 Addendum - Attending - Attending Attestation Date/Time: 02/16/20 1245 I personally evaluated the patient and discussed the management with Dr. Yuen. I agree with the History, Examination, Assessment and Plan documented above with any addition or exceptions noted below. Subsequently had several decels. Was AROM'd and delivered without complication.
[2020-02-16 10:47] LABS: Medtox Reader # READER 4
[2020-02-16 10:48] LABS: Amphetamine Not Detected (NotDetected); Barbiturates Screen Not Detected (NotDetected); Benzodiazepine Screen Not Detected (NotDetected); Cocaine Metabolite Screen Not Detected (NotDetected); Medtox Control Line Valid? VALID (VALID); Methadone Not Detected (NotDetected); Methamphetamine Not Detected (NotDetected); Opiate Screen Not Detected (NotDetected); Oxycodone Screen Not Detected (NotDetected); Phencyclidine (PCP) Not Detected (NotDetected); THC/Cannabinoid Screen Not Detected (NotDetected); Tricyclic Screen Not Detected (NotDetected)
--- NOTE | 2020-02-16 11:39 | ULT ---
LIMITED OB ULTRASOUND: 02/16/20 PROVIDED CLINICAL HISTORY: Evaluate position/presentation. FINDINGS: Limited sonographic interrogation was performed of the gravid uterus, demonstrating cephalic presenta tion of a single live intrauterine gestation, with cardiac activity of 136 beats per minute documente d. IMPRESSION: As above. POS: IVETTE
[2020-02-16] MEDS ORDERED: Milk Of Magnesia 30 ML UDCUP PO PRN (11:47)
[2020-02-16] MEDS ORDERED: Lanolin Ointment 7 GM TUBE TOP PRN (11:47)
[2020-02-16] MEDS ORDERED: Benzocaine-Menthol 82.5 ML CAN TOP PRN (11:47)
[2020-02-16] MEDS ORDERED: Bisacodyl 10 MG SUPP PR PRN (11:47)
--- NOTE | 2020-02-16 11:58 | PDOC.OPDEL ---
OB Operative/Delivery Note Anesthesia: epidural - Additional Findings/Plan Placenta delivered: spontaneous Repaired Obstetrical Laceration: none Estimated blood loss: 150 mL Compilations/Other Findings: Delivering Physician Nancy Hess, PGY1, Sandrine Yuen, PGY2 Attending Dr Wilkerson Procedure: Spontaneous Vaginal Delivery Anesthesia: epidural EBL: 150 ml Pre-op Diagnosis: 1. Term intrauterine in labor 2. GBS + 3. Late to care 4. Hx of pre-e in previous Post-op Diagnosis: 1. Term intrauterine , delivered 2. same as above Indications: A 20 y/o female presents in active labor Delivery Note: This is a 20yo F @ 39.0 wks who delivered a viable M infant at 1137. Was treated with pencillin x2 but was 10 minutes shy of 4 hours of treatment. Following an uneventful antepartum course, a vigorous male was delivered over an intact perineum in the OA position. Anterior Shoulder and then remainder of the body delivered. No nuchal cord. The head was held down and mouth and nares were bulb suctioned. Cord clamped after 1 minute and cut and cord blood collected. Placenta delivered intact in the [place] presentation with a 3 vessel cord noted. Fundal massage was performed and the fundus was firm. The cervix and vagina were inspected and found to be free of lacerations. went to nursery in good condition for routine care. Apgars were 8/9 at 1 & 5 minutes, respectively. Patient tolerated delivery well and went to after routine recovery/care. Post delivery plan: routine recovery Addendum - Attending - Attending Attestation Date/Time: 02/17/20 5732 I was present for the entire delivery.
[2020-02-16] MEDS ORDERED: NS / Oxytocin 40 units/1000ml 1,000 ML IV SCH (12:00)
[2020-02-16] MEDS: Penicillin G 2.5 MILL.units 2.5 MILL.UNITS in Premix Bag 1 BAG IVPB SCH (13:08)
[2020-02-16 14:13] LABS: ALT (SGPT) 9 U/L (8-55); AST (SGOT) 12 U/L (5-34); Albumin 3.4 g/dL (3.5-5.0); Alkaline Phosphatase 232 U/L (40-110); Anion Gap 18 mmol/L (10-20); BUN (Urea Nitrogen) 9 mg/dL (7.0-18.7); Bilirubin, Total 0.4 mg/dL (0.2-1.2); Calc. Creatinine Clearance 159 mL/min (70-130); Carbon Dioxide 21 mmol/L (22-29); Chloride 104 mmol/L (98-107); Estimated GFR-MDRD Greater than 90; Globulin 3.9 g/dL (2.4-3.5); Glucose 81 mg/dL (70-105); Potassium 3.9 mmol/L (3.5-5.1); Protein, Total 7.3 g/dL (6.0-8.3); Sodium 139 mmol/L (136-145)
[2020-02-16] MEDS ORDERED: Adacel (T-DAP) 0.5 ML SYRINGE IM ONE (15:00)
[2020-02-16 15:31] LABS: Creatinine, Urine 58.49 mg/dL (47-110); Protein, Urine Random Quant Less than 10 mg/dL (1-14)
[2020-02-16] MEDS: Ibuprofen 800 MG TAB PO SCH ×2 (17:31→18:59)
[2020-02-16] MEDS: Ferrous Sulfate 325 MG TAB PO SCH (17:32)
[2020-02-16] MEDS: Docusate Calcium (SURFAK) 240 MG CAP PO SCH (21:01)
[2020-02-17] MEDS: Ibuprofen 800 MG TAB PO SCH ×2 (03:07→11:33)
--- NOTE | 2020-02-17 05:28 | PDOC.OBPPN ---
FMR OB PN: Subj - Interval History Hospital Day: 3 Day: 1 Chief Complaint: none, doing well Indentification: 20F >2 delivered viable M via @ 39wga on 02/15 @ 1137 Interval History: pp day 1 s/p FMR OB PN: Obj - Maternal Vital signs: BP: [136/86] HR: [84] RR: [20] Tmax: [99.3F] Pox: [97]% on [RA] Wt: [83.915kg] - Urine output I&O: 02/15/20 02/16/20 02/17/20 07:59 06:59 06:59 Output Total 334 Balance -334 - Lochia Lochia: mild - Pain Management Intervention: oral medication FMR OB PN: Exam - Physical Exam General: NAD, awake, alert and oriented HEENT: normocephalic and atraumatic, EOMI Neck: supple, FROM Heart: RRR, normal S1/S2 General: CTAB, no respiratory distress Abdomen: soft, fundus(cm) (1cm below umbilicus), non-tender, bowel sound present Musculoskeletal: normal gait and station, FROM in all four extremities Neurological: no tremor, no focal deficit Skin: no rash, good tugor : no erythema, no edema Lymphatic: no unusual bruising or bleeding, no purpura Psychiatric: intact recent and remote memory, good judgement and insight - Pelvic Exam : no edema, normal lochia FMR OB PN: Data - Labs Lab results: Laboratory Results - last 24 hr 02/16/20 02/16/20 02/16/20 07:45 07:45 07:45 WBC RBC Hgb Hct MCV MCH MCHC RDW Plt Count MPV Sodium Potassium Chloride Carbon Dioxide Anion Gap BUN Creatinine Estimated GFR (MDRD) Glucose Calcium Total Bilirubin AST ALT Alkaline Phosphatase Serum Total Protein Albumin Globulin Albumin/Globulin Ratio U Random Total Protein Urine Creatinine Urine Opiates Screen Ur Oxycodone Screen Urine Methadone Screen Ur Propoxyphene Screen Ur Barbiturates Screen Ur Tricyclics Screen Ur Phencyclidine Scrn Ur Amphetamines Screen U Methamphetamines Scrn U Benzodiazepines Scrn U Cocaine Metab Screen U Cannabinoids Screen Drug Screen Comment Syphilis IgG/IgM Ab Nonreactive Hep Bs Antigen Non-Reactive Blood Type O POSITIVE Antibody Screen NEGATIVE 11/05/0602/16/20 02/16/20 07:45 07:45 09:59 WBC 23.3 H RBC 4.12 L Hgb 11.9 L Hct 36.3 MCV 88.3 MCH 28.8 MCHC 32.6 RDW 14.2 Plt Count 306 MPV 8.6 Sodium 139 Potassium 3.9 Chloride 104 Carbon Dioxide 21 L Anion Gap 18 BUN 9 Creatinine 0.74 Estimated GFR (MDRD) Greater than 90 Glucose 81 Calcium 9.0 Total Bilirubin 0.4 AST 12 ALT 9 Alkaline Phosphatase 232 H Serum Total Protein 7.3 Albumin 3.4 L Globulin 3.9 H Albumin/Globulin Ratio 0.9 L U Random Total Protein Urine Creatinine Urine Opiates Screen Not Detected Ur Oxycodone Screen Not Detected Urine Methadone Screen Not Detected Ur Propoxyphene Screen Not Detected Ur Barbiturates Screen Not Detected Ur Tricyclics Screen Not Detected Ur Phencyclidine Scrn Not Detected Ur Amphetamines Screen Not Detected U Methamphetamines Scrn Not Detected U Benzodiazepines Scrn Not Detected U Cocaine Metab Screen Not Detected U Cannabinoids Screen Not Detected Drug Screen Comment Syphilis IgG/IgM Ab Hep Bs Antigen Blood Type Antibody Screen 02/16/20 09:59 WBC RBC Hgb Hct MCV MCH MCHC RDW Plt Count MPV Sodium Potassium Chloride Carbon Dioxide Anion Gap BUN Creatinine Estimated GFR (MDRD) Glucose Calcium Total Bilirubin AST ALT Alkaline Phosphatase Serum Total Protein Albumin Globulin Albumin/Globulin Ratio U Random Total Protein Less than 10 Urine Creatinine 58.49 Urine Opiates Screen Ur Oxycodone Screen Urine Methadone Screen Ur Propoxyphene Screen Ur Barbiturates Screen Ur Tricyclics Screen Ur Phencyclidine Scrn Ur Amphetamines Screen U Methamphetamines Scrn U Benzodiazepines Scrn U Cocaine Metab Screen U Cannabinoids Screen Drug Screen Comment Syphilis IgG/IgM Ab Hep Bs Antigen Blood Type Antibody Screen FMR OB PN: A/P - Problem List (1) Group B streptococcal carriage complicating Current Visit: Yes Status: Acute Code(s): O99.820 - STREPTOCOCCUS B CARRIER STATE COMPLICATING (2) Anemia affecting Current Visit: No Status: Acute Code(s): O99.019 - ANEMIA COMPLICATING , UNSPECIFIED TRIMESTER (3) Late care Current Visit: No Status: Acute Code(s): O09.30 - SUPRVSN OF PREG W INSUFFICIENT ANTENAT CARE, UNSP TRIMESTER (4) care following vaginal delivery Current Visit: No Status: Acute Code(s): Z39.2 - ENCOUNTER FOR ROUTINE FOLLOW-UP (5) Term Current Visit: No Status: Acute Code(s): Z34.90 - ENCNTR FOR SUPRVSN OF NORMAL , UNSP, UNSP TRIMESTER Disposition: 20YO delivered viable M @ 39 WGA by 33.2 week sono on 02/15 @ 1137 #pp day 1: - Lochia mild - pain well controlled - Feeding: bottle feeding - Contraception: undecided, will continue to discuss - baby in NICU for concerns for obstruction; baby vomiting green emesis; baby now on double bank phototherapy (ABO incompatibility, elevated bili) - baby to f/u at [facility] where her other son goes #Late to PNC: - Had 3 office visits this , IOB labs & GTT WNLs. s/p flu & Tdap. GBS +. - Case management consulted #GBS+, inadequately treated: - S/p 1 dose PEN G on admission. - 2nd dose not given before delivery; delivery not after 4 hrs since first dose #Anemia in : - On PO iron. Admission H/H 11.9/36.3 #Hx E Coli UTI in 3T: - Has started but no completed abx course. Will do DAHLIA at pp visit #Hx BV in 3T: - Has started but no completed abx course. Will do DAHLIA at pp visit #Hx pre-e in prior : - Aware, patient had several BP with systolics in the 140s - platelets, AST/ALT, and urine prot/creat a wnl - BPs stable s/p delivery #Hx marijuana use in early : - Negative UDS in office. Repeat UDS negative Dispo: admitted to ; continue to monitor BP; case management to consult; baby in NICU PCP: Boby Discussion: Date/Time: 02/17/20 4011 This H&P was discussed with [Rock] who agrees with the above documentation and plan. Signature: Lex Yuen MD PGY-2 Addendum - Attending - Attending Attestation Date/Time: 02/17/20 2184 I personally evaluated the patient and discussed the management with the team. I agree with the History, Examination, Assessment and Plan documented above with any addition or exceptions noted below. Overall doing well. Her son was just transferred with c/f volvulus or other pathology. Will consider an earlier discharge if she can check BP's in light of what may have been gHTN or difficulties with intrapartum pain control. Regardless, she has no severe symptoms and all of her BP's have been reassuring pp.
[2020-02-17] MEDS: Ferrous Sulfate 325 MG TAB PO SCH (08:38)
[2020-02-17] MEDS: Docusate Calcium (SURFAK) 240 MG CAP PO SCH (08:46)
[2020-02-17] MEDS ORDERED: Prenatal Vitamin 1 TAB PO SCH (09:00)
[2020-02-17 11:41] VITALS: BP 116/77; TEMP 97.6
[2020-02-17 13:00] LABS: SARS-CoV-2 MS2 Positive; SARS-CoV-2 N Gene Negative; SARS-CoV-2 S Gene Negative; SARS-CoV-2 by NAA Not Detected (NotDetected); SARS-CoV-2 orf1ab Negative
== END 2020-02-17 17:00 | disposition home or self-care (01) | DRG 807 ==
LOC: L&D/OP 06:33 → L&D 08:04 → 3SW 14:18
PROVIDERS: ADMIT Emergency Medicine; ATTEND Emergency Medicine
PROC: 10E0XZZ Delivery of Products of Conception, External Approach (ICD-10-PCS; principal; 2020-02-16)
PROC: 10907ZC Drainage of Amniotic Fluid, Therapeutic from Products of Conception, Via Natural or Artificial Opening (ICD-10-PCS; 2020-02-16)
DX: O99.824 Streptococcus B carrier state complicating childbirth (principal); Z37.0 Single live birth; O99.02 Anemia complicating childbirth; D64.9 Anemia, unspecified; O76 Abnormality in fetal heart rate and rhythm complicating labor and delivery; Z3A.39 39 weeks gestation of pregnancy; Z20.828 Contact with and (suspected) exposure to other viral communicable diseases; Z88.1 Allergy status to other antibiotic agents; Z88.8 Allergy status to other drugs, medicaments and biological substances
CPT/HCPCS: 36415; 51702; 76815; 80053; 80306; 82570; 84156; 85027; 86780; 86850; 86900; 86901; 87340; 87635; 99285; J2001; J2540; J3490; U0003